=== PATIENT | female | born 1965 | race Two or more races ===

== ENCOUNTER 2019-09-16 09:59 | Inpatient (IN) | payer OTHER ==
[~2019-09-16] VITALS: Ht 160 cm; Wt 66.7 kg
--- NOTE | 2019-09-16 10:00 | NUR ---
AMOR FROM HOME FOR ALTERED MENTAL STATUS, PER EMS REPORT, PATIENT WAS UNRESPONSIVE, FAMILY DID CHEST COMPRESSIONS, PATIENT RESPONDING TO PAINFUL STIMULI. BG 107 PROGRAM FACILITATOR. TO ER BED10, HOOKED TO MONITOR, VSS, BREATHING EVEN AND UNLABORED, NAD NOTED. WILL CONTINUE TO MONITOR, AWAITING MD REAL.
--- NOTE | 2019-09-16 10:06 | NUR ---
DR CRUZ AT BEDSIDE
[2019-09-16] MEDS ORDERED: IV NS 0.9% 1,000 ML BAG IV ONE (10:30)
--- NOTE | 2019-09-16 10:47 | NUR ---
WHEELED OUT VIA RNEY FOR CT SCAN
[2019-09-16 10:49] LABS: BASOPHILS % (AUTO) 0.5 % (0.0-2.0); EOSINOPHILS % (AUTO) 2.7 % (0.0-6.0); HEMATOCRIT 37 % (33-45); HEMOGLOBIN 12.2 g/dL (11.5-14.8); LYMPHOCYTES # (AUTO) 2.7 /CMM (0.8-4.8); LYMPHOCYTES % (AUTO) 34.6 % (20.0-44.0); MEAN CORPUSCULAR HGB CONC 33 g/dl (31.0-36.0); MEAN CORPUSCULAR VOLUME 93 fL (82-100); MONOCYTES # (AUTO) 0.5 /CMM (0.1-1.30); MONOCYTES % (AUTO) 6.7 % (2.0-12.0); NEUTROPHILS # (AUTO) 4.3 /CMM (1.8-8.9); NEUTROPHILS % (AUTO) 55.5 % (43.0-81.0); PLATELET COUNT (AUTO) 248 /CMM (150-450); RED BLOOD CELL COUNT(AUTO) 4.01 MIL/uL (4.0-5.2); WHITE BLOOD COUNT (AUTO) 7.8 K/uL (4.3-11.0)
[2019-09-16 11:00] LABS: CALCIUM, SERUM 9.4 mg/dL (8.5-10.1); CARBON DIOXIDE 29 mmol/L (21-32); CHLORIDE 108 mmol/L (98-107); GLUCOSE 103 mg/dL (74-106); POTASSIUM 3.5 mmol/L (3.5-5.1); SODIUM SERUM 143 mmol/L (136-145); UREA NITROGEN, BLOOD 13 mg/dL (7-18)
[2019-09-16 11:01] LABS: CREATININE 0.7 mg/dL (0.6-1.3)
[2019-09-16 11:07] LABS: ALANINE AMINOTRANSFERASE 27 U/L (12-78); ALBUMIN 3.4 g/dL (3.4-5.0); ALKALINE PHOSPHATASE 64 U/L (46-116); ASPARTATE AMINOTRANSFERASE 17 U/L (15-37); BILIRUBIN,DIRECT 0.1 mg/dL (0.0-0.2); BILIRUBIN,TOTAL 0.2 mg/dL (0.2-1.0); TOTAL PROTEIN, SERUM 6.5 g/dL (6.4-8.2)
[2019-09-16 11:10] LABS: SERUM AMMONIA < 10 umol/L (11-32)
[2019-09-16 11:17] LABS: ACETAMINOPHEN 1 ug/ml (10-30); SALICYLATE 1.3 mg/dL (2.8-20.0)
[2019-09-16 11:27] LABS: ALCOHOL, BLOOD < 3 mg/dL (0-0)
[2019-09-16 11:30] VITALS: BP 102/60
--- NOTE | 2019-09-16 11:57 | NUR ---
[facility] paged for panel call, waiting for call back from Guero
[2019-09-16] MEDS ORDERED: GABA-532 PO (12:01)
[2019-09-16] MEDS ORDERED: POTA-10 PO (12:01)
[2019-09-16] MEDS ORDERED: PROP300T2 PO (12:01)
[2019-09-16] MEDS ORDERED: SIMV-49 PO (12:01)
[2019-09-16] MEDS ORDERED: MECL-159 PO (12:01)
[2019-09-16] MEDS ORDERED: METH500T6 PO (12:01)
[2019-09-16] MEDS ORDERED: METO25TA6 PO (12:01)
[2019-09-16] MEDS ORDERED: ALPR1TAB7 PO (12:01)
[2019-09-16] MEDS ORDERED: THYR30TA2 PO (12:01)
[2019-09-16] MEDS ORDERED: AMIT100T2 PO (12:01)
[2019-09-16] MEDS ORDERED: NAPR-1192 PO (12:01)
[2019-09-16] MEDS ORDERED: ONDA8TAB6 PO (12:02)
[2019-09-16 12:05] LABS: THYROID STIMULATING HORMONE < 0.007 uIU/mL (0.358-3.74)
--- NOTE | 2019-09-16 12:12 | NUR ---
panel call in progress
[2019-09-16] MEDS ORDERED: KETOROLAC TROMETHAMINE 15 MG/ML VIAL ONE (12:23)
--- NOTE | 2019-09-16 12:24 | NUR ---
RN Sup was called for tele bed, waiting for bed assignment
--- NOTE | 2019-09-16 12:25 | NUR ---
PATIENT ALLERGIC TO KETOROLAC. MADE MD AWARE, RETURNED MEDICATION TO [facility]
[2019-09-16] MEDS ORDERED: KETOROLAC TROMETHAMINE INJ 30 MG/ML VIAL IV ONE (12:30)
--- NOTE | 2019-09-16 12:42 | NUR ---
DR ONTIVEROS AT BEDSIDE
[2019-09-16] MEDS ORDERED: ACETAMINOPHEN ES 500 MG TABLET ONE (12:47)
[2019-09-16] MEDS ORDERED: MORPHINE SULFATE INJ 2 MG/ML DISP.SYRIN ONE (12:47)
--- NOTE | 2019-09-16 12:55 | NUR ---
PATIENT ABLE TO AMBULATE GOING TO RESTROOM
[2019-09-16] MEDS ORDERED: NITROGLYCERIN 0.4 MG/TAB BOTTLE SL PRN (13:00)
[2019-09-16] MEDS ORDERED: MECLIZINE HCL 25 MG TABLET PO PRN (13:00)
[2019-09-16] MEDS ORDERED: LORAZEPAM 1 MG TABLET PO PRN (13:00)
[2019-09-16] MEDS ORDERED: ONDANSETRON HCL/PF 4 MG/2 ML VIAL IVP PRN (13:00)
[2019-09-16] MEDS ORDERED: MORPHINE SULFATE INJ 2 MG/ML DISP.SYRIN IV ONE (13:00)
[2019-09-16] MEDS ORDERED: MORPHINE SULFATE INJ 2 MG/ML DISP.SYRIN IV PRN ×2 (13:00)
[2019-09-16] MEDS ORDERED: ZOLPIDEM TARTRATE 5 MG TABLET PO PRN (13:00)
--- NOTE | 2019-09-16 13:02 | NUR ---
URINE SAMPLE SENT TO LAB
[2019-09-16] MEDS: ACETAMINOPHEN ES 500 MG TABLET PO PRN (13:03)
--- NOTE | 2019-09-16 13:08 | NUR ---
REPORT GIVEN TO SUMMER OF TELE UNIT
--- NOTE | 2019-09-16 13:20 | NUR ---
DOUGHNUT DOUGH MIXER OPENING NOTES RECEIVED PATIENT VIA RIA FROM ER. ON TELE MONITORING SR: 81. NO SOB. DENIES ANY C/O PAIN NOR DISCOMFORT AT THIS TIME. ORIENTED PATIENT TO ROOM, CALL LIGHT AND UNIT. SKIN BODY ASSESSMENT DONE, SKIN INTACT. RIGHT WRIST # 20 SL INTACT AND PATENT WITHOUT S/S OF COMPLICATIONS. AMBULATORY WITH STEADY GAIT. DURING INTERVIEW, PATIENT VERBALIZED ABOUT WANTING ATIVAN AND MORPHINE AT THE SAME TIME WHICH SHE NORMALLY GETS AT HOME AND SHE PREFERS IT TO BE GIVEN IV DUE TO HER ANXIETY. EXPLAINED AND EDUCATED PATIENT REGARDING RISKS AND BENEFITS OF MEDICATIONS AND THAT MORPHINE WAS RECENTLY GIVEN AT ER DEPT. BED IN LOWEST POSITION, LOCKED. BED ALARM ON. CALL LIGHT WITHIN REACH. SON AND AT BEDSIDE. SON TOOK ALL PERSONAL BELONGINGS AND HOME MEDICATION HOME DUE TO PATIENT AND FAMILY ARE ONLY VISITING AND LIVES [place].
[2019-09-16] MEDS: ASPIRIN 81 MG TAB.CHEW PO SCH (14:02)
[2019-09-16] MEDS: GABAPENTIN 100 MG CAPSULE PO SCH ×2 (14:02→17:59)
[2019-09-16 14:30] LABS: APPEARANCE,URINE Clear (CLEAR); BILIRUBIN,URINE Negative (NEGATIVE); BLOOD, URINE Negative Ery/uL (NEGATIVE); COLOR,URINE Yellow (YELLOW); KETONES,URINE Negative (NEGATIVE); LEUKOCYTE ESTERASE ,URINE Moderate (NEGATIVE); NITRITE, URINE Negative (NEGATIVE); PROTEIN,URINE Negative (NEGATIVE); UGLUCOSE Negative (NEGATIVE); UROBILINOGEN,URINE 0.2 EU/dL (0.2)
[2019-09-16 14:33] LABS: BACTERIA,URINE Few /HPF (None Seen); RBC,URINE 0-2 /HPF (0-2); SQUAMOUS EPITHELIAL CELL,UR Few /HPF (None Seen)
[2019-09-16 16:00] VITALS: BP 88/60
[2019-09-16] MEDS: METOPROLOL TARTRATE 25 MG TABLET PO SCH (16:41)
--- NOTE | 2019-09-16 16:41 | NUR ---
FARM OPERATIONS TECHNICAL DIRECTOR NOTES HELD TRISTAN B/P 90/58 HR:77. PER PATIENT BASELINE BP HIGH 80'S TO LOW 90'S.
[2019-09-16] MEDS ORDERED: METOPROLOL TARTRATE 25 MG TABLET PO SCH (17:00)
[2019-09-16] MEDS: NAPROXEN 375 MG TABLET PO SCH (17:59)
[2019-09-16] MEDS: PROPAFENONE HCL 150 MG TABLET PO SCH (17:59)
--- NOTE | 2019-09-16 18:55 | NUR ---
CRIMINAL PSYCHOLOGIST CLOSING NOTES ALERT AND ORIENTED X4. HOB ELEVATED. NO SOB. DENIES ANY C/O DIZZINESS, N/V, CHEST PAIN. RIGHT WRIST # 20 SL AND LEFT FA #22 SL INTACT AND PATENT WITHOUT S/S OF COMPLICATIONS. AMBULATORY WITH STEADY GAIT. BED IN LOWEST POSITION, LOCKED. BED ALARM ON. CALL LIGHT WITHIN REACH. IN NO APPARENT DISTRESS. ABLE TO VERBALIZE NEEDS. IN NO APPARENT DISTRESS.
[2019-09-16 20:13] VITALS: BP 94/45
[2019-09-16] MEDS ORDERED: AMITRIPTYLINE HCL 25 MG TABLET PO SCH (22:00)
[2019-09-16] MEDS ORDERED: SIMVASTATIN 20 MG TABLET PO SCH (22:00)
[2019-09-17] VITALS: BP 85/60
[2019-09-17 04:11] VITALS: BP 88/62
--- NOTE | 2019-09-17 06:17 | NUR ---
WIRE SPIRAL BINDER NOTES AWAKE & RESPONSIVE. NOT IN ANY DISTRESS. NO SOB NOTED. DENIES ANY PAIN OR DISCOMFORT AT THIS TIME. ON TELE SR WITH 1AVB @ 91 WITH IV-HL PATENT & INTACT. MONITORED ACCORDINGLY. CALL LIGHT WITHIN REACH. BED IN LOWEST POSITION. SR UP X 2 FOR SAFETY. WILL ENDORSE TO NEXT SHIFT.
[2019-09-17 06:59] LABS: CALCIUM, SERUM 8.2 mg/dL (8.5-10.1); CREATININE 0.5 mg/dL (0.6-1.3); PHOSPHORUS 3.5 mg/dL (2.5-4.9); POTASSIUM 3.9 mmol/L (3.5-5.1)
[2019-09-17 07:05] LABS: BASOPHILS % (AUTO) 0.3 % (0.0-2.0); EOSINOPHILS % (AUTO) 4.8 % (0.0-6.0); HEMATOCRIT 33 % (33-45); LYMPHOCYTES # (AUTO) 2.5 /CMM (0.8-4.8); LYMPHOCYTES % (AUTO) 48.9 % (20.0-44.0); MEAN CORPUSCULAR HGB CONC 33 g/dl (31.0-36.0); MEAN CORPUSCULAR VOLUME 92 fL (82-100); MONOCYTES # (AUTO) 0.4 /CMM (0.1-1.30); MONOCYTES % (AUTO) 7.3 % (2.0-12.0); NEUTROPHILS % (AUTO) 38.7 % (43.0-81.0); PLATELET COUNT (AUTO) 212 /CMM (150-450); RED BLOOD CELL COUNT(AUTO) 3.58 MIL/uL (4.0-5.2); WHITE BLOOD COUNT (AUTO) 5.2 K/uL (4.3-11.0)
--- NOTE | 2019-09-17 07:38 | NUR ---
Tele/RN Opening Note Patient is resting in bed, A/O x4, showing no signs of acute distress, saturating well on RA. Tele monitor SR 88. IV S/L right wrist 20g and LFA 22g are clean and patent. Bed is in lowest position, side rails x2 in upright position. call light is within reach and patient is aware of how to call for assistance when needed. Will continue with current plan of care.
[2019-09-17 08:05] VITALS: BP_SYST 108; BP_SYST 110; BP_SYST 93; BP_DIAS 58; BP_DIAS 68; BP_DIAS 74
--- NOTE | 2019-09-17 08:09 | NUR ---
Tele/RN Orthostatic BP S?B Dr. Jones and ordered orthostatic blood pressure. Supine: 93/58 HR 80, sittin/74 HR 78, standin/68 HR 89
[2019-09-17 08:35] VITALS: BP 110/71
[2019-09-17] MEDS: GABAPENTIN 100 MG CAPSULE PO SCH ×2 (08:39→13:03)
[2019-09-17] MEDS: ASPIRIN 81 MG TAB.CHEW PO SCH ×3 (08:39→08:50)
[2019-09-17 08:49] VITALS: BP 93/58
[2019-09-17] MEDS: METOPROLOL TARTRATE 25 MG TABLET PO SCH (08:49)
[2019-09-17] MEDS: NAPROXEN 375 MG TABLET PO SCH (08:49)
[2019-09-17] MEDS: PROPAFENONE HCL 150 MG TABLET PO SCH (08:50)
--- NOTE | 2019-09-17 08:51 | NUR ---
Tele/RN Pt refused med Explained to patient that aspirin is to be given, patient agreed. After medication was scanned, saved, and opened, patient changed her mind and refused medication. Documented as non-admin on eMAR.
--- NOTE | 2019-09-17 08:56 | NUR ---
Tele/RN pt c/o pain Patient C/O chest pain and migraine on a scale of 10 out of 10. Pain medication given, see eMAR.
--- NOTE | 2019-09-17 09:47 | NUR ---
Tele/RN called patient's healthcare prof Called Dr. Abdoulaye Florez and left a message. Will call back later.
--- NOTE | 2019-09-17 11:03 | NUR ---
Tele/RN notes Called Dr. Abdoulaye Florez Production Boring Machine Operator office twice and did not answer, membership secretary said he is in [place] and will be available after 1300. Requested fax number [phone] to fax authorization for use or disclosure of health information. Fax sent and received confirmation.
--- NOTE | 2019-09-17 12:59 | NUR ---
RN notes Dr. Jolly is aware of loop monitor and ECHO results. He cleared patient for DC to home today.
--- NOTE | 2019-09-17 13:26 | NUR ---
RT NOTE PATIENT REFUSE ECG.
[2019-09-17] MEDS: ACETAMINOPHEN ES 500 MG TABLET PO PRN (14:07)
--- NOTE | 2019-09-17 15:15 | NUR ---
MANAGER LPN NOTE PATIENT DISCHARGED TO HOME IN STABLE CONDITION. ALERT AND ORIENTED X4, ABLE TO MAKE NEEDS KNOWN. VITAL SIGNS WNL. SKIN IS INTACT, BELONGINGS ACCOUNTED FOR. IV ACCESS AND ARMBAND REMOVED. EDUCATION PROVIDED REGARDING DISCHARGE INSTRUCTIONSM, VERBALIZED UNDERSTANDING. PATIENT LEFT UNIT BY WHEELCHAIR ACCOMPANIED BY FOURDRINIER TENDER AND SON AT 1430. PATIENT AND SON LEFT FOLDER AT THE BEDSIDE TABLE, CALLED THEM BACK AND PATIENT REFUSED TO COME BACK AND AIR FORCE PILOT THE DISCHARGE FOLDER. SON STATED THAT ITS OK AND THAT THEY WILL JUST SEE THEIR PCP AND AIR EXPORT COORDINATOR. MD AND CHARGE NURSE AWARE OF DISCHARGE.
== END 2019-09-17 14:30 | disposition home or self-care (01) | DRG 48 ==
LOC: ER 09:59 → TELE 12:39 → MED 09-17 11:37
PROVIDERS: ADMIT Internal Medicine; ATTEND Internal Medicine
DX: G90.8 Other disorders of autonomic nervous system (principal); E05.90 Thyrotoxicosis, unspecified without thyrotoxic crisis or storm; F41.9 Anxiety disorder, unspecified; I10 Essential (primary) hypertension; M94.0 Chondrocostal junction syndrome [Tietze]; I25.2 Old myocardial infarction; G43.909 Migraine, unspecified, not intractable, without status migrainosus; E78.5 Hyperlipidemia, unspecified; F17.210 Nicotine dependence, cigarettes, uncomplicated; W18.30XA Fall on same level, unspecified, initial encounter; Y92.89 Other specified places as the place of occurrence of the external cause
CPT/HCPCS: 36415; 70450-TC; 71045-TC; 71111-TC; 72125-TC; 80048-TC; 80061-TC; 80076-TC; 80305; 81000-TC; 82140-TC; 83605-TC; 83735-TC; 84100-TC; 84443-TC; 84484-TC; 85025-TC; 87081-TC; 87086-TC; 93307-TC; G0378; G0480; J1885; J2270; J2405; J7030